=== PATIENT | female | born 1990 | race Caucasian/White ===

== ENCOUNTER 2022-01-18 00:07 | Day surgery (SDC) | payer OTHER, SELFPAY ==
[2022-01-11 09:50] VITALS: BMI 25.7
--- NOTE | 2022-01-11 10:03 | PC.NURSE ---
Report to the Outpatient Waiting Room, entrance under the green pavilion located off [facility], at time 0900 on date 01/18/22. OR Time: 1100. - You and your visitor will be asked a series of questions to screen for COVID 19 for your protection. - Only one visitor is allowed at this time. - The patient visitor is requested to leave or wait in car when not with patient. - A mask is required within the hospital. Patients may have clear liquids (water, carbonated beverages, clear teas, apple juice) until 3 hours prior to surgery with a maximum of 20 ounces. - No food from midnight until time of surgery Take the following medications with a SIP of water the morning of surgery: BUPROPION, FLUOXETINE, LEVOTHYROXINE Medications to discontinue per physician: VITAMINS/SUPPLEMENTS Date to take last dose: 01/14/22 Please no make-up, nail lithuanian, hairspray, perfume, deodorant, or body powder the day of surgery. No jewelry (including any body piercings) or valuables the day of surgery, leave them at home. Please take a shower or bath the night before, or the morning of, surgery with an antibacterial soap. Wear comfortable, loose fitting clothing. - Jewelry must be removed prior to entering the operating room. Rings and piercings that are not removed may be cut off. - The hospital will not accept responsibility for valuables. - Please leave all valuables, including medications, at home the day of surgery. If you are going home after surgery, a licensed helper driver must drive you home. - NO public transportation without another adult. - We recommend that an adult stay with you for 24 hours following discharge. - We also recommend that you do not drive, make important decision, drink alcoholic beverages, or take any drugs that were not prescribed by your health care provider for at least 24 hours after your discharge time. Follow any additional instructions given to you from your surgeon. If you or anyone in your household have experienced Covid symptoms in the past week, please notify your surgeon or the nurse liaison at the phone number below for possible testing. Telephone instructions given to ESTEFANI BAH and asked if any additional questions and then verbalized understanding. Patient advised to call surgeon office or pre surgery nurse liaison [phone] if any additional questions.
[2022-01-18] VITALS (11 sets, daily range): BP systolic 107–124; BP diastolic 49–71; PULSE 65–86; RESP 11–16; TEMP 36.4–36.8; O2SAT 96–100; BMI 26.0
--- NOTE | 2022-01-18 07:57 | WPDANESEPPF ---
Anes - Initial Pre Proc Eval Procedure: Operation Date: 01/18/22 11:00 Proposed Procedures p Bilateral Breast Augmentation - Miquel Hagen MD Date/Time: 01/18/22 07:57 Surgeon: Miquel Hagen MD Pre Op Diagnosis: micromastia Patient Data Age: 31 Gender: F Height: 1.63 m Weight: 68.04 kg Allergies Allergy/AdvReac Type Severity Reaction Status Date / Time prochlorperazine Allergy Severe Other Verified 01/18/22 09:02 [From Compazine] Home Medications Medication Instructions Recorded Confirmed Type carisoprodol 350 mg tablet (Soma) 350 mg PO TID PRN muscle pain #21 12/30/21 01/11/22 Rx tabs docusate sodium 100 mg capsule 100 mg PO DAILY #14 caps 12/30/21 01/11/22 Rx (Colace) ondansetron HCl 4 mg tablet 4 mg PO Q8H #21 tabs 12/30/21 01/11/22 Rx oxycodone-acetaminophen 5 mg-325 1 tablet PO Q6H PRN pain #30 tabs 12/30/21 01/11/22 Rx mg tablet (Percocet) bupropion HCl 150 mg 24 hr tablet, 150 mg PO DAILY 01/11/22 01/18/22 History extended release fluoxetine 40 mg capsule 40 mg PO DAILY 01/11/22 01/18/22 History levothyroxine 25 mcg tablet 25 mcg PO DAILY 01/11/22 01/18/22 History melatonin 10 mg tablet 10 mg PO HS PRN Insomnia 01/11/22 01/11/22 History omeprazole 40 mg capsule,delayed 40 mg PO DAILY 01/11/22 01/18/22 History release Patient hx anesthesia problems: none Family hx anesthesia problems: none Results Review: All pre-operative results and documents have been reviewed as part of the pre-operative evaluation. [facility] Past Medical History Medical History (Updated 01/18/22 @ 07:58 by Naman Haskins DO) Anxiety Hx of cleft palate Hypothyroidism Surgical History Surgical History Hx of eye surgery Hx of total hysterectomy with removal of both tubes and ovaries Social History Social History Smoking packs per day: 0.5 Smoking cigarettes per day: 10.0 Years smoked: 14 Smoking pack-years: 7.00 Smoking status: Former smoker Tobacco type: cigarettes Smoking end date: 07/07/20 Alcohol intake: current Alcohol use details: 1/MONTH Substance use: never Substance use type: does not use Living arrangements: with family Spiritual care concerns: No Anes - Eval Final PreProcedure Day of Procedure 01/18/22 07:57 Patient weight: overweight Heart: regular rate and rhythm Lungs: clear to auscultation Airway: Mallampati scale class II Neurological: alert and oriented Last oral intake: >/= 8 hours ASA classification: II Emergent: no Anesthetic plan: proceed Anesthesia type and monitoring: general LMA and standard monitoring Results Review: All pre-operative results and documents have been reviewed as part of the pre-operative evaluation. Informed Consent: The patient's anesthetic plan and its attendant risks and benefits were discussed with the patient/family/POA. Questions were solicited and answers provided to the satisfaction of the patient/family/POA.
[2022-01-18] MEDS: LACTATED RINGERS 1,000 ML 30 ML IV CONT ×2 (09:35→12:04)
--- NOTE | 2022-01-18 09:35 | SUR.PREOP ---
500CC IVF BOLUS STARTED PER ORDERS
--- NOTE | 2022-01-18 09:44 | WPDHPUPDATE1 ---
History and Physical Update Update Date/Time: 01/18/22 09:44 History and Physical has been reviewed, including an updated exam of the patient. There are NO changes in the patient's condition. Risks, benefits, and alternatives have been discussed and questions answered. Patient agrees to proceed with procedure.
--- NOTE | 2022-01-18 09:50 | SUR.PREOP ---
FEMALE STAFF IN ROOM WHILE DR RICHARDS MARKED PT. SIG OTHER AT BEDSIDE
--- NOTE | 2022-01-18 09:59 | W.PM.PROC2 ---
Procedure Note - Detailed Date of Procedure 01/18/22 Pre-op Diagnosis micromastia Post-op Diagnosis Same Procedure Performed Bilateral augmentation mammaplasty Surgeon Miquel Hagen MD Anesthesia General Findings Bilateral dual plane 3 augmentation mamaplasty Bilateral Nicola Vences SoftTouch 520cc Right REF# [id number] SN [id number] Left REF# [id number] SN [id number] Description of Procedure She is here today for bilateral breast augmentation. Previously and again today the risks, benefits, alternatives were discussed in extensive detail. I wanted her to be very realistic about the risks involved as well as expectations. We discussed aftercare and what to monitor for. Made sure answered all of her questions to her satisfaction today and consent was obtained. Marked in the preoperative holding area with their verification. The patient was taken to the operating room placed supine on the operating table. Anesthesia was provided by anesthesiology. A surgical time-out was taken. We cleansed the skin and 1% lidocaine and 0.25% Marcaine with epinephrine was used anesthetize as a field block. She was prepped and draped in a standard sterile fashion. Tegaderm nipple Nixon were placed. A 15 blade used to make an incision along the inframammary fold. Dissection was continued at 45 degree angle until the chest wall as identified. Elevated subglandular in a dual plane fashion as above. I incised the pectoralis major along its inferior border and completely released the inferior border leaving the medial border intact. I created a subpectoral pocket in the appropriate dimensions based on our preoperative planning for the implant. I then copiously irrigated with saline solution and verified a strict hemostasis. Next the use a triple antibiotic and Betadine containing solution to irrigate the pocket. I washed my gloves with the triple antibiotic and Betadine solution. We washed the implant immediately upon opening it with this solution and only opened it when we needed it. I used implant funnel and no-touch technique. The implant was introduced into the pocket using the funnel. Having verified positioning of the implant this was closed using 2-0 Vicryl followed by 3-0 Monocryl in a running subcuticular 4-0 Monocryl followed by tissue glue. Fluffs and surgical bra were placed. Patient was awoke and taken to PACU without difficulty. All instrument sponge counts were correct at the end of the case. Estimated Blood Loss 20 Drains No Packing No Pathology None sent Complications No immediate complications Condition Stable Disposition PACU
[2022-01-18] MEDS: LIDO 1%/EPINEPHRINE/PF 1:200,000 30 ML VIAL XX (10:21)
[2022-01-18] MEDS: NACL 0.9% IRRIG POUR BOTTLE 900 ML, GENTAMICIN SULFATE INJ 160 MG, ceFAZolin 2 GM, POVI... IRRIGATION (10:21)
[2022-01-18] MEDS: BUPIVACAINE HCL 0.25% PF 30 ML VIAL INFILTRATE (10:21)
[2022-01-18] MEDS: TRANEXAMIC ACID 1,000MG/ISO100 1,000 MG/100 ML BAG 200 MG IVPB (10:21)
[2022-01-18] MEDS: ceFAZolin 2 GM/D5W 50 ML 2 GM/50 ML BAG IVPB (10:21)
[2022-01-18] MEDS: fentaNYL CITRATE INJ (*CRX) 100 MCG/2 ML VIAL 25 MCG IV PUSH ×6 (11:44→13:48)
--- NOTE | 2022-01-18 11:46 | SUR.PHASEI ---
oral airway removed at 1141
[2022-01-18] MEDS: ONDANSETRON INJ 4 MG/2 ML VIAL IV PUSH (12:27)
[2022-01-18] MEDS: oxyCODONE HCL (*CRX) 5 MG TAB IR PO (12:50)
== END 2022-01-18 14:40 | disposition home or self-care (01) ==
PROVIDERS: Visit Provider Surgery Plastic and Reconstructive Surgery
PROC: (CPT 19325; principal; 2022-01-18 11:00)
DX: Z41.1 Encounter for cosmetic surgery (principal); N64.82 Hypoplasia of breast; F41.9 Anxiety disorder, unspecified; E03.9 Hypothyroidism, unspecified; Z87.891 Personal history of nicotine dependence
CPT/HCPCS: 19325; A9270; J0690; J1100; J1580; J2250; J2405; J2704; J3010; J7120